=== PATIENT | male | born 1990 | race Caucasian/White ===

== ENCOUNTER 2017-06-05 02:43 | Observation (INO) | payer SELFPAY ==
[~2017-06-05] VITALS: Ht 172.7 cm; Wt 102.1 kg
--- NOTE | 2017-06-05 02:55 | ED Psychosocial ---
General Stated Complaint: ETOH Source: patient, EMS Exam Limitations: intoxication History of Present Illness Time seen by provider: 02:41 Initial Comments Patient presents to ER by EMS after he was found passed out in the parking lot of a local [employer] by police. He was intoxicated and gave very few answers other than he has been at a [employer] having fun today. EMS placed an IV in his left before meals and gave him about a quarter of 1 L normal saline. Patient gives a history that he was drinking liquor .[employer] and he is from [place]. He gives an address and a phone number for his mother. The patient denies any pain or nausea. He denies any use of drugs but he does smoke. Patient denies being in a fight. Allergies and Home Medications Allergies Coded Allergies: No Known Drug Allergies (Unverified , 06/05/17) Constitutional: see HPI (patient unable to give us meaningful review of systems secondary to intoxication.) Past Ymbibdz-Eciopf-Cpnkyh Hx Patient Social History Alcohol Beverage of Choice: Vodka Recreational Drug Use: No Smoking Status: Current Everyday Smoker Type Used: Cigarettes Physical Exam Vital Signs Capillary Refill : General Appearance: WD/WN, no apparent distress (intoxicated) HEENT: PERRL/EOMI, pharynx normal (dry mucous membranes), TM abnormal (L) ( dark green/black, bulging TM), other (negative for Montes sign or raccoon eyes.) Neck: non-tender, normal inspection Respiratory: chest non-tender, lungs clear, normal breath sounds Cardiovascular: normal peripheral pulses, regular rate, rhythm, no edema Gastrointestinal: normal bowel sounds, non tender, soft, no organomegaly Extremities: normal range of motion, non-tender, normal inspection, normal capillary refill, other (small minor superficial abrasion to the palmar side of the left wrist.) Neurologic/Psychiatric: normal mood/affect, other (GCS 13) Appearance/Memory: disheveled Behavior/Eye Contact: cooperative Skin: normal color, warm/dry, other (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.) Progress/Results/Core Measures Results/Orders Lab Results Laboratory Tests Test 06/05/17 02:45 Range/Units White Blood Count 6.7 4.3-11.0 10^3/uL Red Blood Count 5.33 4.35-5.85 10^6/uL Hemoglobin 16.7 13.3-17.7 G/DL Hematocrit 47 40-54 % Mean Corpuscular Volume 88 80-99 FL Mean Corpuscular Hemoglobin 31 25-34 PG Mean Corpuscular Hemoglobin Concent 36 32-36 G/DL Red Cell Distribution Width 12.7 10.0-14.5 % Platelet Count 210 130-400 10^3/uL Mean Platelet Volume 9.6 7.4-10.4 FL Neutrophils (%) (Auto) 50 42-75 % Lymphocytes (%) (Auto) 38 12-44 % Monocytes (%) (Auto) 10 0-12 % Eosinophils (%) (Auto) 2 0-10 % Basophils (%) (Auto) 0 0-10 % Neutrophils # (Auto) 3.3 1.8-7.8 X 10^3 Lymphocytes # (Auto) 2.6 1.0-4.0 X 10^3 Monocytes # (Auto) 0.7 0.0-1.0 X 10^3 Eosinophils # (Auto) 0.1 0.0-0.3 10^3/uL Basophils # (Auto) 0.0 0.0-0.1 10^3/uL Sodium Level 140 135-145 MMOL/L Potassium Level 3.4 L 3.6-5.0 MMOL/L Chloride Level 106 98-107 MMOL/L Carbon Dioxide Level 22 21-32 MMOL/L Anion Gap 12 5-14 MMOL/L Blood Urea Nitrogen 14 7-18 MG/DL Creatinine 0.98 0.60-1.30 MG/DL Estimat Glomerular Filtration Rate > 60 BUN/Creatinine Ratio 14 Glucose Level 166 H 70-105 MG/DL Calcium Level 8.2 L 8.5-10.1 MG/DL Magnesium Level 2.4 1.8-2.4 MG/DL Total Bilirubin 0.4 0.1-1.0 MG/DL Aspartate Amino Transf (AST/SGOT) 30 5-34 U/L Alanine Aminotransferase (ALT/SGPT) 48 0-55 U/L Alkaline Phosphatase 95 40-136 U/L Total Protein 7.0 6.4-8.2 GM/DL Albumin 4.3 3.2-4.5 GM/DL Serum Alcohol 307 *H <10 MG/DL My Orders Orders - DILIP MYA Alcohol (06/05/17 02:56) Cbc With Automated Diff (06/05/17 02:56) Comprehensive Metabolic Panel (06/05/17 02:56) Drug Screen Stat (Urine) (06/05/17 02:56) Magnesium (06/05/17 02:56) Ct Head/Cervical Spine Wo (06/05/17 02:56) Ondansetron Injection (Zofran Injectio (06/05/17 03:00) Progress Note : Time: 02:55 Progress Note We'll obtain blood and urine if possible as well as a CT scan given his odd- appearing left TM. Right TM looks normal. Concern for old blood behind the TM. As the patient can't give any history or reveal whether or not he has truly had any traumatic head injury it is safest to scan and look for evidence of intracranial hemorrhage or fracture. We will go ahead and give the rest of the 1 L normal saline started by EMS. Diagnostic Imaging Diagonstic Imaging: CT Plain Films/CT/US/NM/MRI: c-spine, head Comments No intracranial hemorrhage, mass effect, tumor, infection. There is some kind of debris in the left external ear canal does not appear to be an acute bleed. Stat read CT head/C-spine no acute findings. Reviewed: Reviewed Night Alanak Study, Reviewed by Me Departure Communication (Admissions) Time/Spoke to Admitting Phy: 04:[address] Johnson and reviewed the imaging lab and clinical findings and she is okay with observing the patient. Impression Impression: Primary Impression: Alcohol intoxication Qualified Codes: F10.920 - Alcohol use, unspecified with intoxication, uncomplicated Disposition: ADMITTED INPATIENT (obs) Condition: Stable Admissions Decision to Admit Reason: Admit from ER (General) Decision to Admit/Date: Jun 05, 2017 Time/Decision to Admit Time: 04:05 Departure-Patient Inst. Patient Instructions: ALCOHOL AND SUBSTANCE ABUSE Add. Discharge Instructions: Drink plenty of fluids and use Tylenol or ibuprofen to control for any headache or body aches. Copy Copies To 1: BRIELLE HERNANDEZ MD, TITUS J Jun 05, 2017 02:55
[2017-06-05] MEDS ORDERED: ONDANSETRON 4 MG/2 ML (SDV) Z0FRAN IVP ONE (03:00)
[2017-06-05 03:03] LABS: BASOPHILS % (AUTO) 0 % (0-10); EOSINOPHILS # (AUTO) 0.1 10^3/uL (0.0-0.3); EOSINOPHILS % (AUTO) 2 % (0-10); LYMPHOCYTES # (AUTO) 2.6 X 10^3 (1.0-4.0); LYMPHOCYTES % (AUTO) 38 % (12-44); MEAN CORPUSCULAR HEMOGLOBIN 31 PG (25-34); MEAN CORPUSCULAR HGB CONC 36 G/DL (32-36); MEAN CORPUSCULAR VOLUME 88 FL (80-99); MEAN PLATELET VOLUME 9.6 FL (7.4-10.4); MONOCYTES # (AUTO) 0.7 X 10^3 (0.0-1.0); MONOCYTES % (AUTO) 10 % (0-12); NEUTROPHILS # (AUTO) 3.3 X 10^3 (1.8-7.8); NEUTROPHILS % (AUTO) 50 % (42-75); PLATELET COUNT 210 10^3/uL (130-400); RED BLOOD COUNT 5.33 10^6/uL (4.35-5.85); RED CELL DISTRIBUTION WIDTH 12.7 % (10.0-14.5); WHITE BLOOD COUNT 6.7 10^3/uL (4.3-11.0)
[2017-06-05 03:15] LABS: ALANINE AMINOTRANSFERASE 48 U/L (0-55); ALBUMIN 4.3 GM/DL (3.2-4.5); ANION GAP 12 MMOL/L (5-14); ASPARTATE AMINO TRANSFERASE 30 U/L (5-34); BILIRUBIN,TOTAL 0.4 MG/DL (0.1-1.0); BLOOD UREA NITROGEN 14 MG/DL (7-18); BUN/CREATININE RATIO 14; CALCIUM 8.2 MG/DL (8.5-10.1); CARBON DIOXIDE 22 MMOL/L (21-32); CHLORIDE 106 MMOL/L (98-107); CREATININE SERUM 0.98 MG/DL (0.60-1.30); GFR ESTIMATED > 60; GLUCOSE 166 MG/DL (70-105); MAGNESIUM 2.4 MG/DL (1.8-2.4); POTASSIUM 3.4 MMOL/L (3.6-5.0); SODIUM 140 MMOL/L (135-145)
[2017-06-05 03:25] LABS: ALCOHOL 307 MG/DL (<10)
[2017-06-05 04:48] VITALS: BP 135/88
[2017-06-05] MEDS ORDERED: CATHETER FLUSH 10 ML SYR IV PRN (06:00)
[2017-06-05] MEDS ORDERED: IBUPROFEN 800 MG (MOTRIN) TAB PO PRN (06:00)
[2017-06-05] MEDS ORDERED: CATHETER FLUSH 10 ML SYR IV SCH (06:00)
[2017-06-05] MEDS ORDERED: THIAMINE INJECTION 100 MG, FOLIC ACID INJECTION 1 MG, VITAMIN MULTI INJECTION 10 ML, MA... IV ONE ×5 (06:00)
[2017-06-05] MEDS ORDERED: ACETAMINOPHEN 500 MG TAB (TYLENOL) PO PRN (06:00)
[2017-06-05] MEDS ORDERED: ONDANSETRON 4 MG/2 ML (SDV) Z0FRAN IV PRN (06:00)
[2017-06-05 08:00] VITALS: BP 135/88
[2017-06-05] MEDS ORDERED: INFLUENZA TRIvalent 2017-2018 0.5 ML/45 MCG SYR IM ONE ×2 (08:00→11:33)
--- NOTE | 2017-06-05 08:20 | Diagnostic Imaging Report ---
PROCEDURE: CT head and CT cervical spine without contrast. TECHNIQUE: Multiple contiguous axial images were obtained through the brain and cervical spine without the use of intravenous contrast. Sagittal and coronal reformations through the cervical spine were then performed. INDICATION: Alcohol abuse COMPARISON: None available FINDINGS: No intracranial hemorrhage. No intracranial mass, mass effect, midline shift, herniation, hydrocephalus, or extra-axial fluid collection. No CT evidence of an acute ischemic infarction. Disconjugate gaze. The paranasal sinuses are clear. The calvarium and extracranial soft tissues are unremarkable. Alignment of the cervical spine is well maintained. Alignment of the atlantooccipital joint is well maintained. Vertebral body heights and disc spaces are well-maintained. No acute fracture or dislocation. No destructive osseous process. No high-grade osseous central canal or neuroforaminal stenosis. No apical pneumothorax. The paraspinal soft tissues are unremarkable. IMPRESSION: No acute intracranial abnormality. No acute osseous abnormality within the cervical spine. Agree with preliminary interpretation. Dictated by: Dictated on workstation # [id number]
--- NOTE | 2017-06-05 11:18 | Short Stay Summary-Hospitalist ---
HPI History of Present Illness: HPI/Chief Complaint Pt is a 26yoCM with a PMH of alcohol abuse. Per review of records he was found passed out at [employer] and brought to the ER for evaluation. Upon exam today he remembers very little of yesterday's events. He reports being at a [employer] house and drinking too much. He has had previous issues with alcohol and has had two DUIs in the past. He denies drinking everyday but endorses binging at times. He has a breathalyzer installed in his car due to his DUIs. He denies any complaints today other than his misplaced keys and glasses. Despite having two DUIs and this incident last night when asked if he felt he had a problem with drinking he said no and declined any information for alcohol abuse help. Source: patient, RN/MD Exam Limitations: intoxication Date Seen 06/05/17 Time Seen by Provider: 10:55 Attending Physician Brielle Turner MD PCP Unknown Referring Physician Date of Admission Jun 05, 2017 at 04:00 Home Medications & Allergies Home Medications Reviewed patient Home Medication Reconciliation Form Allergies Allergies Coded Allergies No Known Drug Allergies (Jernmcglrq41/29/17) Past Yyptrvg-Dzshkc-Thccnt Hx Patient Social History Marrital Status: single Alcohol Use: Occasionally Uses Number of Drinks Today: FF Alcohol Beverage of Choice: Vodka Recreational Drug Use: No Smoking Status: Current Everyday Smoker Type Used: Cigarettes Physical Abuse Screen: No Sexual Abuse: No Recent Foreign Travel: No Contact w/other who traveled: No Recent Infectious Disease Expo: No Surgeries No Respiratory No Cardiovascular No Neurological No Reproductive System Hx Reproductive Disorders: No Genitourinary No Gastrointestinal No Musculoskeletal No Endocrine History of Endocrine Disorders: No HEENT History of HEENT Disorders: No Cancer No Psychosocial History of Psychiatric Problem: No Integumentary History of Skin or Integumenta: No Family Medical History Significant Family History: No Pertinent Family Hx Review of Systems Constitutional: No chills, No fever EENTM: No blurred vision, No double vision, No nose congestion, No throat pain Respiratory: No cough, No dyspnea on exertion, No short of breath Cardiovascular: No chest pain, No edema, No palpitations Gastrointestinal: No abdominal pain, No constipation, No diarrhea, No vomiting Genitourinary: No dysuria, No frequency Musculoskeletal: No joint pain, No muscle pain Skin: No lesions, No rash Psychiatric/Neurological: Denies Numbness, Denies Tingling Physical Exam Physical Exam Vital Signs Vital Sign - Last 12Hours 06/05/17 03:19 Temp 97.8 Pulse 97 Resp 20 B/P (MAP) 141/93 Pulse Ox 94 O2 Delivery Room Air Capillary Refill : Less Than 3 Seconds General Appearance: No Apparent Distress, WD/WN, Obese HEENT: Moist Mucous Membranes, No Scleral Icterus (L), No Scleral Icterus (R) Neck: Supple, No Thyromegaly Respiratory: Lungs Clear, No Respiratory Distress Cardiovascular: Regular Rate, Rhythm, No Murmur Gastrointestinal: Non Tender, Soft, No Distended Extremity: Normal Inspection, No Pedal Edema Neurologic/Psychiatric: Alert, Oriented x3, Normal Mood/Affect Skin: Normal Color, Warm/Dry Results Results/Procedures Lab Laboratory Tests 06/05/17 02:[address] HEAD/CERVICAL SPINE WO PROCEDURE: CT head and CT cervical spine without contrast. INDICATION: Alcohol abuse COMPARISON: None available FINDINGS: No intracranial hemorrhage. No intracranial mass, mass effect, midline shift, herniation, hydrocephalus, or extra-axial fluid collection. No CT evidence of an acute ischemic infarction. Disconjugate gaze. The paranasal sinuses are clear. The calvarium and extracranial soft tissues are unremarkable. Alignment of the cervical spine is well maintained. Alignment of the atlantooccipital joint is well maintained. Vertebral body heights and disc spaces are well-maintained. No acute fracture or dislocation. No destructive osseous process. No high-grade osseous central canal or neuroforaminal stenosis. No apical pneumothorax. The paraspinal soft tissues are unremarkable. IMPRESSION: No acute intracranial abnormality. No acute osseous abnormality within the cervical spine. Short Stay Diagnosis Discharge Diagnosis-Short Stay Admission Diagnosis Altered Mental Status Final Discharge Diagnosis Alcohol Intoxication Conclusion Plan Discussed binge drinking and I recommended cessation. I recommended and offered alcohol abuse treatment resources after CAGE score 2. He declined as he does not feel he has a problem with alcohol. Mentation improved and A&Ox3 today. Will DC home. He will call his mother for ride. Diagnosis/Problems Diagnosis/Problems (1) Alcohol intoxication Status: Acute Assessment & Plan: Mentation improved s/p Banana Bag Qualifiers: Qualified Codes: F10.920 - Alcohol use, unspecified with intoxication, uncomplicated (2) Hypokalemia Assessment & Plan: s/p supplementation Clinical Quality Measures DVT/VTE Risk/Contraindication: Risk Factor Score Per Nursin RFS Level Per Nursing on Admit: 2=Moderate BRIELLE TURNER MD Jun 05, 2017 11:18
== END 2017-06-05 11:25 | disposition home or self-care (01) ==
LOC: ER 02:45 → UNDOADMOB 04:00 → 4TH 04:00 → UNDODISOB 13:00
PROVIDERS: ADMIT Family Medicine; ATTEND Family Medicine
DX: F10.129 Alcohol abuse with intoxication, unspecified (principal); L40.9 Psoriasis, unspecified; F17.210 Nicotine dependence, cigarettes, uncomplicated; Y90.8 Blood alcohol level of 240 mg/100 ml or more
CPT/HCPCS: 36415; 70450; 72125; 80053; 80306; 80320; 83735; 85025; G0378

== ENCOUNTER 2019-11-02 19:39 | Emergency (ER) | payer BC ==
[~2019-11-02] VITALS: Ht 170 cm; Wt 79.3 kg
--- NOTE | 2019-11-02 19:56 | ED Neurological Problem ---
General Stated Complaint: FEELS LIKE HES HAVING A BREAKDOWN Source: patient Exam Limitations: no limitations History of Present Illness Date Seen by Provider: Nov 02, 2019 Time Seen by Provider: 19:54 Initial Comments ER with reports of severe anxiety, states he is to the point that he feels he is having a mental breakdown and needs inpatient care. He's never been hospitalized inpatient before, he works for [employer] and is insured with them. He takes Vrylar and ativan 0.5mg po daily. He states he would like to , he has no specific plan as to how he would kill himself. Timing/Duration: 1 week Severity: moderate Associated Symptoms: denies symptoms Allergies and Home Medications Allergies Coded Allergies: No Known Drug Allergies (Unverified , 06/05/17) Home Medications No Active Prescriptions or Reported Meds Patient Home Medication List Home Medication List Reviewed: Yes Review of Systems Review of Systems Constitutional: see HPI Eyes: No Symptoms Reported Ears, Nose, Mouth, Throat: no symptoms reported Respiratory: no symptoms reported Cardiovascular: no symptoms reported Genitourinary: no symptoms reported Musculoskeletal: no symptoms reported Skin: no symptoms reported Psychiatric/Neurological: See HPI, Anxiety Endocrine: No Symptoms Reported Past Wsncsbq-Qyqelr-Zewfwe Hx Patient Social History Alcohol Beverage of Choice: Vodka Type Used: Cigarettes Recent Foreign Travel: No Contact w/Someone Who Travel: No Past Medical History Surgeries: No Respiratory: No Cardiac: No Neurological: No Reproductive Disorders: No Genitourinary: No Gastrointestinal: No Musculoskeletal: No Endocrine: No HEENT: No Cancer: No Psychosocial: No Integumentary: No Family Medical History No Pertinent Family Hx Physical Exam Vital Signs Vital Signs - First Documented 11/02/19 19:54 Temp 37.2 Pulse 93 Resp 22 B/P (MAP) 165/121 (136) Pulse Ox 96 Capillary Refill : Height, Weight, BMI Height: 5'8.00" Weight: 225lbs. 0.0oz. 102.597075ds; 34.2 BMI Method:Estimated General Appearance: WD/WN, no apparent distress, other (alert, cooperative, pleasant.) HEENT: PERRL/EOMI, normal ENT inspection Respiratory: no respiratory distress, no accessory muscle use Gastrointestinal: normal bowel sounds, soft Extremities: normal range of motion, non-tender Neurologic/Psychiatric: alert, normal mood/affect, oriented x 3 Crainal Nerves: normal hearing, normal speech, PERRL Skin: normal color, warm/dry Progress/Results/Core Measures Results/Orders Lab Results Laboratory Tests Test 11/02/19 20:11 11/02/19 20:58 Range/Units White Blood Count 7.0 4.3-11.0 10^3/uL Red Blood Count 4.90 4.35-5.85 10^6/uL Hemoglobin 16.0 13.3-17.7 G/DL Hematocrit 44 40-54 % Mean Corpuscular Volume 90 80-99 FL Mean Corpuscular Hemoglobin 33 25-34 PG Mean Corpuscular Hemoglobin Concent 36 32-36 G/DL Red Cell Distribution Width 12.5 10.0-14.5 % Platelet Count 222 130-400 10^3/uL Mean Platelet Volume 9.2 7.4-10.4 FL Neutrophils (%) (Auto) 62 42-75 % Lymphocytes (%) (Auto) 29 12-44 % Monocytes (%) (Auto) 9 0-12 % Eosinophils (%) (Auto) 1 0-10 % Basophils (%) (Auto) 0 0-10 % Neutrophils # (Auto) 4.3 1.8-7.8 X 10^3 Lymphocytes # (Auto) 2.0 1.0-4.0 X 10^3 Monocytes # (Auto) 0.6 0.0-1.0 X 10^3 Eosinophils # (Auto) 0.0 0.0-0.3 10^3/uL Basophils # (Auto) 0.0 0.0-0.1 10^3/uL Sodium Level 139 135-145 MMOL/L Potassium Level 3.5 L 3.6-5.0 MMOL/L Chloride Level 106 98-107 MMOL/L Carbon Dioxide Level 21 21-32 MMOL/L Anion Gap 12 5-14 MMOL/L Blood Urea Nitrogen 11 7-18 MG/DL Creatinine 1.02 0.60-1.30 MG/DL Estimat Glomerular Filtration Rate > 60 BUN/Creatinine Ratio 11 Glucose Level 137 H 70-105 MG/DL Calcium Level 9.6 8.5-10.1 MG/DL Corrected Calcium 8.5-10.1 MG/DL Total Bilirubin 0.7 0.1-1.0 MG/DL Aspartate Amino Transf (AST/SGOT) 30 5-34 U/L Alanine Aminotransferase (ALT/SGPT) 48 0-55 U/L Alkaline Phosphatase 68 40-136 U/L Total Protein 7.1 6.4-8.2 GM/DL Albumin 4.6 H 3.2-4.5 GM/DL Salicylates Level < 5.0 L 5.0-20.0 MG/DL Acetaminophen Level < 10 L 10-30 UG/ML Serum Alcohol < 10 <10 MG/DL My Orders Orders - MAMIE HUFF APRN Cbc With Automated Diff (11/02/19 19:52) Ekg Tracing (11/02/19 19:52) Comprehensive Metabolic Panel (11/02/19 19:52) Ua Culture If Indicated (11/02/19 19:52) Drug Screen Stat (Urine) (11/02/19 19:52) Salicylate (11/02/19 19:52) Acetaminophen (11/02/19 19:52) Alcohol (11/02/19 19:52) Alprazolam Tablet (Xanax Tablet) (11/02/19 20:00) Alprazolam Tablet (Xanax Tablet) (11/02/19 19:59) General/Regular (11/03/19 Breakfast) Medications Given in ED Current Medications Medications Dose Ordered Sig/Lali Route Start Time Stop Time Status Last Admin Dose Admin Alprazolam 1 mg ONCE ONCE PO 11/02/19 20:00 11/02/19 20:01 DC 11/02/19 20:00 1 MG Vital Signs/I&O 11/02/19 19:54 Temp 37.2 Pulse 93 Resp 22 B/P (MAP) 165/121 (136) Pulse Ox 96 Departure Communication (Admissions) Cooperative and pleasant here, spoke with Dr. Ander Ward from [facility], will accept the patient. Kira Donato will transport Impression Primary Impression: Anxiety Disposition: 65 XFER TO PSYCH HOSP/UNIT Condition: Stable Departure-Patient Inst. Referrals: SELF,VERNA RIVERS (PCP/Family) Primary Care Physician Scripts No Active Prescriptions or Reported Meds MAMIE HUFF APRN Nov 02, 2019 19:55
[2019-11-02] MEDS ORDERED: ALPRAZolam 0.5 MG (XANAX) TAB ONE (19:59)
[2019-11-02] MEDS ORDERED: ALPRAZolam 1 MG (XANAX) TAB PO ONE (20:00)
[2019-11-02 20:21] LABS: BASOPHILS % (AUTO) 0 % (0-10); EOSINOPHILS % (AUTO) 1 % (0-10); HEMATOCRIT 44 % (40-54); LYMPHOCYTES % (AUTO) 29 % (12-44); MEAN CORPUSCULAR HEMOGLOBIN 33 PG (25-34); MEAN CORPUSCULAR HGB CONC 36 G/DL (32-36); MEAN CORPUSCULAR VOLUME 90 FL (80-99); MEAN PLATELET VOLUME 9.2 FL (7.4-10.4); MONOCYTES # (AUTO) 0.6 X 10^3 (0.0-1.0); MONOCYTES % (AUTO) 9 % (0-12); NEUTROPHILS # (AUTO) 4.3 X 10^3 (1.8-7.8); NEUTROPHILS % (AUTO) 62 % (42-75); PLATELET COUNT 222 10^3/uL (130-400); RED CELL DISTRIBUTION WIDTH 12.5 % (10.0-14.5)
[2019-11-02 20:41] LABS: ALANINE AMINOTRANSFERASE 48 U/L (0-55); ALBUMIN 4.6 GM/DL (3.2-4.5); ALKALINE PHOSPHATASE 68 U/L (40-136); BILIRUBIN,TOTAL 0.7 MG/DL (0.1-1.0); BUN/CREATININE RATIO 11; CALCIUM 9.6 MG/DL (8.5-10.1); CARBON DIOXIDE 21 MMOL/L (21-32); CHLORIDE 106 MMOL/L (98-107); CREATININE SERUM 1.02 MG/DL (0.60-1.30); GFR ESTIMATED > 60; GLUCOSE 137 MG/DL (70-105); POTASSIUM 3.5 MMOL/L (3.6-5.0); SALICYLATE < 5.0 MG/DL (5.0-20.0); SODIUM 139 MMOL/L (135-145); TOTAL PROTEIN 7.1 GM/DL (6.4-8.2)
[2019-11-02 20:48] LABS: ACETAMINOPHEN < 10 UG/ML (10-30)
--- NOTE | 2019-11-02 21:19 | NUR ---
REGULAR SANDWICH TRAY ORDERED FOR THIS PATIENT
[2019-11-02 21:56] LABS: BILIRUBIN,URINE NEGATIVE (NEGATIVE); CLARITY,URINE CLEAR; COLOR,URINE YELLOW; GLUCOSE, URINE (UA) NEGATIVE (NEGATIVE); KETONES,URINE NEGATIVE (NEGATIVE); LEUKOCYTE ESTERASE ,URINE NEGATIVE (NEGATIVE); NITRITE,URINE NEGATIVE (NEGATIVE); PH,URINE 5.5 (5-9); PROTEIN,URINE 1+ (NEGATIVE)
[2019-11-02 22:20] LABS: AMPHETAMINE SCREEN, URINE NEGATIVE (NEGATIVE); BARBITURATE SCREEN URINE NEGATIVE (NEGATIVE); BENZODIAZEPINES SCREEN URINE POSITIVE (NEGATIVE); CANNABINOID SCREEN, URINE NEGATIVE (NEGATIVE); COCAINE SCREEN URINE NEGATIVE (NEGATIVE); METHADONE STAT NEGATIVE (NEGATIVE); METHAMPHETAMINE SCREEN URINE S NEGATIVE (NEGATIVE); OPIATE SCREEN URINE NEGATIVE (NEGATIVE); OXYCODONE STAT NEGATIVE (NEGATIVE); PROPOXYPHENE STAT NEGATIVE (NEGATIVE); TRICYCLIC ANTIDEPRESSANTS SCRE NEGATIVE (NEGATIVE)
[2019-11-02 22:21] LABS: BACTERIA,URINE TRACE /HPF; CALCIUM OXALATE CRYSTALS,UR MODERATE /LPF
[2019-11-02 22:30] VITALS: BP 145/87
== END 2019-11-02 22:30 ==
LOC: EDUNIT# 19:39 → ER 19:41
DX: F41.9 Anxiety disorder, unspecified (principal)
CPT/HCPCS: 36415; 80053; 80306; 80320; 80329; 81000; 85025

== ENCOUNTER 2019-11-09 14:37 | Emergency (ER) | payer BC ==
[~2019-11-09] VITALS: Ht 170 cm; Wt 81.0 kg
--- NOTE | 2019-11-09 14:54 | ED Psychosocial ---
General Stated Complaint: DIZZY;FEVER;ANXIETY Source: patient Exam Limitations: no limitations History of Present Illness Date Seen by Provider: Nov 09, 2019 Time Seen by Provider: 14:49 Initial Comments To ER by EMS from home with c/o anxiety. I transferred him from here to [facility] for inpatient psych for anxiety last week. He was released Tuesday. Reports that since then he's been better, but still uncomfortably anxious. Meds are vraylar, hydroxyzine, xanax, zoloft, gabapentin. Hes had all of these already today but still feels anxious. Upon EMS arrival his tympanic temp was found to be 100.6 but he denies any symptoms of illness. Specifically he denies any cough runny nose shortness of breath fevers or chills at home no nausea no vomiting no diarrhea. Temperature here is 96.9.No suicidal ideation. No homicidal ideation. The gabapentin, Zoloft, hydroxyzine are new. Timing/Duration: getting worse Severity: moderate Associated Symptoms: anxiety, impaired concentration Allergies and Home Medications Allergies Coded Allergies: No Known Drug Allergies (Unverified , 06/05/17) Home Medications No Active Prescriptions or Reported Meds Patient Home Medication List Home Medication List Reviewed: Yes Review of Systems Constitutional: see HPI; No chills, No fever EENTM: see HPI; No nose pain Respiratory: no symptoms reported; No cough, No short of breath Cardiovascular: no symptoms reported Gastrointestinal: No abdominal pain, No diarrhea, No nausea Genitourinary: no symptoms reported Musculoskeletal: no symptoms reported Skin: no symptoms reported Psychiatric/Neurological: No Symptoms Reported Past Emaxvxk-Todqop-Bzghhq Hx Patient Social History Alcohol Beverage of Choice: Vodka, Other Type Used: Cigarettes Immunizations Up To Date Tetanus Booster (TDap): Less than 5yrs PED Vaccines UTD: Yes Past Medical History Surgeries: No Respiratory: No Cardiac: No Neurological: No Reproductive Disorders: No Genitourinary: No Gastrointestinal: No Musculoskeletal: No Endocrine: No HEENT: No Cancer: No Psychosocial: No Integumentary: No Family Medical History No Pertinent Family Hx Physical Exam Vital Signs - First Documented 11/09/19 14:40 Temp 36.5 Pulse 87 Resp 16 B/P (MAP) 151/99 (116) Pulse Ox 96 O2 Delivery Room Air Capillary Refill : Height, Weight, BMI Height: 5'8.00" Weight: 225lbs. 0.0oz. 102.901344wq; 27.00 BMI Method:Estimated General Appearance: WD/WN, no apparent distress, other (oral temp here 96.9) HEENT: PERRL/EOMI, normal ENT inspection, TMs normal, pharynx normal Neck: non-tender, full range of motion Respiratory: normal breath sounds, no respiratory distress, no accessory muscle use Cardiovascular: regular rate, rhythm, no murmur Gastrointestinal: normal bowel sounds, non tender, soft Extremities: normal range of motion, non-tender Neurologic/Psychiatric: alert, normal mood/affect, oriented x 3 Appearance/Memory: appropriate appearance, appropriate insight Behavior/Eye Contact: cooperative, good eye contact Thoughts/Hallucinations: normal thought pattern, no apparent hallucination Skin: normal color, warm/dry Progress/Results/Core Measures Results/Orders Lab Results Laboratory Tests Test 11/09/19 14:45 11/09/19 14:50 Range/Units White Blood Count 5.6 4.3-11.0 10^3/uL Red Blood Count 4.93 4.35-5.85 10^6/uL Hemoglobin 15.6 13.3-17.7 G/DL Hematocrit 45 40-54 % Mean Corpuscular Volume 91 80-99 FL Mean Corpuscular Hemoglobin 32 25-34 PG Mean Corpuscular Hemoglobin Concent 35 32-36 G/DL Red Cell Distribution Width 12.6 10.0-14.5 % Platelet Count 230 130-400 10^3/uL Mean Platelet Volume 9.6 7.4-10.4 FL Neutrophils (%) (Auto) 68 42-75 % Lymphocytes (%) (Auto) 25 12-44 % Monocytes (%) (Auto) 7 0-12 % Eosinophils (%) (Auto) 1 0-10 % Basophils (%) (Auto) 0 0-10 % Neutrophils # (Auto) 3.8 1.8-7.8 X 10^3 Lymphocytes # (Auto) 1.4 1.0-4.0 X 10^3 Monocytes # (Auto) 0.4 0.0-1.0 X 10^3 Eosinophils # (Auto) 0.0 0.0-0.3 10^3/uL Basophils # (Auto) 0.0 0.0-0.1 10^3/uL Sodium Level 138 135-145 MMOL/L Potassium Level 3.7 3.6-5.0 MMOL/L Chloride Level 104 98-107 MMOL/L Carbon Dioxide Level 23 21-32 MMOL/L Anion Gap 11 5-14 MMOL/L Blood Urea Nitrogen 12 7-18 MG/DL Creatinine 0.96 0.60-1.30 MG/DL Estimat Glomerular Filtration Rate > 60 BUN/Creatinine Ratio 13 Glucose Level 232 H 70-105 MG/DL Calcium Level 9.1 8.5-10.1 MG/DL Corrected Calcium 8.8 8.5-10.1 MG/DL Total Bilirubin 0.4 0.1-1.0 MG/DL Aspartate Amino Transf (AST/SGOT) 23 5-34 U/L Alanine Aminotransferase (ALT/SGPT) 41 0-55 U/L Alkaline Phosphatase 84 40-136 U/L Lactate Dehydrogenase 202 125-220 U/L Total Protein 7.0 6.4-8.2 GM/DL Albumin 4.4 3.2-4.5 GM/DL Group A Streptococcus Screen NEGATIVE NEGATIVE Micro Results Microbiology 11/09/19 Influenza Types A,B Antigen (RAMSES) - Final, Complete My Orders Orders - MAMIE HUFF APRN Olanzapine Orally Dissolve Tab (Zyprexa (11/09/19 15:00) Cbc With Automated Diff (11/09/19 14:46) Comprehensive Metabolic Panel (11/09/19 14:46) Procalcitonin (Pct) (11/09/19 14:46) Hs C Reactive Protein (11/09/19 14:46) LDH (11/09/19 14:46) Ed Iv/Invasive Line Start (11/09/19 14:46) Influenza A And B Antigens (11/09/19 14:46) Rapid Strep A Screen (11/09/19 14:46) Medications Given in ED Current Medications Medications Dose Ordered Sig/Lali Route Start Time Stop Time Status Last Admin Dose Admin Olanzapine 5 mg ONCE ONCE PO 11/09/19 15:00 11/09/19 15:01 DC 11/09/19 15:00 5 MG Vital Signs/I&O 11/09/19 14:40 Temp 36.5 Pulse 87 Resp 16 B/P (MAP) 151/99 (116) Pulse Ox 96 O2 Delivery Room Air Departure Communication (Admissions) 1600-still states that he is feeling anxious and somewhat and also complains that he is still unable to focus. I'm afraid I can't help from the emergency standpoint. We'll discharge to home With outpatient psychiatric follow-up. Impression Primary Impression: Anxiety Disposition: 01 HOME, SELF-CARE Condition: Stable Departure-Patient Inst. Decision time for Depature: 16:26 Referrals: SELF,VERNA RIVERS (PCP/Family) Primary Care Physician Patient Instructions: Anxiety, Adult (DC) Add. Discharge Instructions: 1. I would suspect that your symptoms of inability to focus more likely related to the new medications that you have started. Specifically, the gabapentin or the Zoloft. Call your mental health provider to discuss whether to continue these medications or stop them. Scripts No Active Prescriptions or Reported Meds MAMIE HUFF [employer] Nov 09, 2019 14:54
[2019-11-09] MEDS ORDERED: OLANZapine 5 MG ODT (ZyPREXA ZYDIS) PO ONE (15:00)
--- NOTE | 2019-11-09 15:20 | NUR ---
1 LITER NS STARTED BY EMS IN AT THIS TIME.
[2019-11-09 15:23] LABS: BASOPHILS % (AUTO) 0 % (0-10); EOSINOPHILS % (AUTO) 1 % (0-10); HEMATOCRIT 45 % (40-54); HEMOGLOBIN 15.6 G/DL (13.3-17.7); LYMPHOCYTES # (AUTO) 1.4 X 10^3 (1.0-4.0); LYMPHOCYTES % (AUTO) 25 % (12-44); MEAN CORPUSCULAR HEMOGLOBIN 32 PG (25-34); MEAN CORPUSCULAR HGB CONC 35 G/DL (32-36); MEAN CORPUSCULAR VOLUME 91 FL (80-99); MEAN PLATELET VOLUME 9.6 FL (7.4-10.4); MONOCYTES # (AUTO) 0.4 X 10^3 (0.0-1.0); MONOCYTES % (AUTO) 7 % (0-12); NEUTROPHILS # (AUTO) 3.8 X 10^3 (1.8-7.8); NEUTROPHILS % (AUTO) 68 % (42-75); PLATELET COUNT 230 10^3/uL (130-400); RED CELL DISTRIBUTION WIDTH 12.6 % (10.0-14.5); WHITE BLOOD COUNT 5.6 10^3/uL (4.3-11.0)
[2019-11-09 15:36] LABS: ALANINE AMINOTRANSFERASE 41 U/L (0-55); ALBUMIN 4.4 GM/DL (3.2-4.5); ALKALINE PHOSPHATASE 84 U/L (40-136); BILIRUBIN,TOTAL 0.4 MG/DL (0.1-1.0); BUN/CREATININE RATIO 13; CALCIUM 9.1 MG/DL (8.5-10.1); CARBON DIOXIDE 23 MMOL/L (21-32); CHLORIDE 104 MMOL/L (98-107); CREATININE SERUM 0.96 MG/DL (0.60-1.30); GFR ESTIMATED > 60; GLUCOSE 232 MG/DL (70-105); POTASSIUM 3.7 MMOL/L (3.6-5.0); SODIUM 138 MMOL/L (135-145)
[2019-11-09 16:37] VITALS: BP 152/104
== END 2019-11-09 16:36 | disposition home or self-care (01) ==
LOC: EDUNIT# 14:37 → ER 14:39
DX: F41.9 Anxiety disorder, unspecified (principal)
CPT/HCPCS: 36415; 80053; 83615; 84145; 85025; 86141; 87430; 87804